=== PATIENT | female | born 1995 | race Caucasian/White ===

== ENCOUNTER 2017-08-04 13:43 | Day surgery (SDC) | payer OTHER ==
[~2017-08-04] VITALS: Ht 162.6 cm; Wt 63.5 kg
[2017-08-04] MEDS ORDERED: SODIUM CHLORIDE 0.9% 1,000 ML IV ONE (13:46)
[2017-08-04] MEDS ORDERED: ONDANSETRON 2MG/ML, 2ML ONE ×2 (13:51→17:14)
[2017-08-04] MEDS ORDERED: MORPHINE SULFATE 4 MG/ML, 1ML ONE ×3 (13:51→15:33)
[2017-08-04] MEDS ORDERED: ONDANSETRON 2MG/ML, 2ML IVPush ONE (14:00)
[2017-08-04] MEDS ORDERED: SODIUM CHLORIDE 0.9% 1,000ML IVBOLUS ONE (14:00)
[2017-08-04] MEDS: MORPHINE SULFATE 4 MG/ML, 1ML IVPush PRN ×2 (14:10→15:35)
[2017-08-04] MEDS ORDERED: PROPOFOL 10 MG/ML, 20ML ONE ×2 (15:33→17:56)
[2017-08-04] MEDS ORDERED: MIDAZOLAM 1 MG/ML, 2ML ONE (15:58)
[2017-08-04] MEDS ORDERED: FENTANYL PF 250 MCG/5ML ONE (15:58)
[2017-08-04 16:01] LABS: BASOPHILS # (AUTO) 0.03 x10^3/uL (0-0.3); BASOPHILS % (AUTO) 0 % (0-1); EOSINOPHILS # (AUTO) 0.02 x10^3/uL (0-0.8); EOSINOPHILS % (AUTO) 0 % (1-7); LYMPHOCYTES # (AUTO) 1.34 x10^3/uL (1-6.1); LYMPHOCYTES % (AUTO) 10 % (22-44); MD NO; MEAN CORPUSCULAR HEMOGLOBIN 27.9 pg (27.0-34.8); MEAN CORPUSCULAR HGB CONC 32.7 g/dL (32.4-35.8); MEAN CORPUSCULAR VOLUME 85.6 fL (80-100); MEAN PLATELET VOLUME 9.2 fL (7.4-10.4); MONOCYTES # (AUTO) 0.68 x10^3/uL (0-1.4); MONOCYTES % (AUTO) 5 % (2-9); NEUTROPHILS # (AUTO) 11.81 x10^3/uL (1.8-8.0); NEUTROPHILS % (AUTO) 85 % (42-75); PLATELET COUNT 258 x10^3/uL (130-400); RED CELL DISTRIBUTION WIDTH 14.8 % (9.6-15.2)
[2017-08-04 16:09] LABS: ALBUMIN 4.3 g/dL (3.4-5.0); ANION GAP 8 mmol/L (5-15); CALCIUM 8.5 mg/dL (8.5-10.1); CHLORIDE 108 mmol/L (98-107); CREATININE 0.75 mg/dL (0.55-1.02)
[2017-08-04] MEDS ORDERED: EPINEPHRINE 1 MG/ML, 1ML ONE (16:32)
[2017-08-04] MEDS ORDERED: BUPIVACAINE/PF 0.5% ONE (16:32)
[2017-08-04 16:37] VITALS: BP 108/68
[2017-08-04] MEDS ORDERED: ROCURONIUM 10 MG/ML,10ML ONE (17:14)
[2017-08-04] MEDS ORDERED: CEFAZOLIN 1,000 MG ONE (17:14)
[2017-08-04] MEDS ORDERED: DEXAMETHASONE 4 MG/ML, 1ML ONE (17:22)
[2017-08-04] MEDS ORDERED: SUCCINYLCHOLINE 20 MG/ML, 10ML ONE (17:56)
[2017-08-04] MEDS ORDERED: FENTANYL PF 100 MCG/2ML IV PRN (18:00)
[2017-08-04] MEDS ORDERED: PROMETHAZINE 25 MG/ML, 1ML IV PRN (18:00)
[2017-08-04] MEDS ORDERED: MEPERIDINE/PF 25MG/0.5ML IVPush PRN (18:00)
[2017-08-04] MEDS ORDERED: ONDANSETRON 2MG/ML, 2ML IVPush PRN ×2 (18:00→20:00)
[2017-08-04] MEDS ORDERED: MIDAZOLAM 1 MG/ML, 2ML IV PRN (18:00)
[2017-08-04] MEDS ORDERED: OXYcodone 5 MG/5 ML ORAL.SOL UDC PO PRN ×2 (18:00→20:00)
[2017-08-04] MEDS ORDERED: HYDROmorphone 1 MG/ML, 1ML IV PRN (18:00)
[2017-08-04] MEDS ORDERED: ACETAMINOPHEN 325 MG TABLET PO PRN ×2 (18:00→20:00)
[2017-08-04] MEDS ORDERED: KETOROLAC 30 MG/1 ML ONE (19:06)
[2017-08-04] MEDS ORDERED: OXYcodone 5 MG/5 ML ORAL.SOL UDC ONE (19:36)
[2017-08-04] MEDS ORDERED: ACETAMINOPHEN 650 MG/20.3 ML UDC ONE (19:36)
[2017-08-04] MEDS ORDERED: HYDROmorphone 2 MG/ML, 1ML ONE (19:36)
[2017-08-04] MEDS ORDERED: PROMETHAZINE 25 MG/ML, 1ML IM PRN (20:00)
[2017-08-04] MEDS ORDERED: morphine SULFATE 10 MG/ML, 1ML IVPush PRN (20:00)
[2017-08-04] MEDS ORDERED: KETOROLAC 30 MG/1 ML IVPush SCH (20:00)
[2017-08-04] MEDS ORDERED: OXYC5TAB2 PO (20:38)
[2017-08-04] MEDS ORDERED: ONDA4TAB7 PO (20:39)
[2017-08-04] MEDS ORDERED: FLU VACC QS2017-18 (36MOS+) UP/PF 0.5 ML IM-VACC ONE (22:00)
== END 2017-08-04 23:50 ==
LOC: ED 15:50 → EDIP 16:01 → UNDOADMIN 16:01 → SDC 19:39 → EDIP 20:15 → 4NOR 20:15 → UNDODISIN 23:50 → SDC 23:50
PROVIDERS: ATTEND Orthopaedic Surgery
DX: S82.842A Displaced bimalleolar fracture of left lower leg, initial encounter for closed fracture (principal); Y93.51 Activity, roller skating (inline) and skateboarding; Y93.89 Activity, other specified; Y92.89 Other specified places as the place of occurrence of the external cause; Y99.8 Other external cause status; S93.492A Sprain of other ligament of left ankle, initial encounter
CPT/HCPCS: 27814; 27829; 36415; 73590; 73600; 73620; 76001; 80048; 82040; 84703; 85025; 90686; 96361; 96374; 96375; 96376; 99285; C1713; C1762; J0171; J0330; J0690; J1100; J1170; J1885; J2250; J2405; J2704; J3010; J3490; J7030